=== PATIENT | female | born 1985 | race Caucasian/White ===

== ENCOUNTER 2020-07-24 23:36 | Emergency (ER) | payer MEDICAID, SELFPAY ==
[2020-07-24 23:40] VITALS: BP 140/100; PULSE 105; RESP 18; TEMP 36.7; O2SAT 100
--- NOTE | 2020-07-24 23:41 | ED.GENADUL_ITS ---
Discharge Plan Disposition Patient Disposition: HOME Condition: Good Discharge Details Clinical Impression: Subjective muscle weakness Primary Care Provider: Izabella Martin ED Provider: Carlito Tristan Home Meds and New Rx's Prescriptions: Continued methadone [Dolophine] 10 MG tablet 120 mg PO DAILY RF: 0 Discharge Instructions Additional Instructions: We will have care management help establish primary care for you. You may then follow-up with primary care for consideration of completion TIA work-up. However, as we discussed, likelihood of this being TIA is quite low. Return to ED for any new neurologic symptoms or concerns. Referrals: Care Management [Provider Group] Medical Decision Making Patient is extremely anxious. We talked about risk and likelihood of this being anything significant like TIA. Clearly not a peripheral nerve problem as symptoms resolved suddenly. Subjectively felt facial droop but did not actually look or see anyone that describe facial droop. Has a mild headache now but nothing severe. Did not develop headache until later in the day. No history of migraines. Doubt this is TIA given lack of other symptoms and given timing of less than 1 minute. Also doubt migraine related although could potentially be. I do not feel that EKG and laboratory studies are indicated. Will obtain noncontrast head CT. Patient does not have primary care. Will refer to care management to establish primary care. Then consider completion of TIA work-up outpatient with MRI, echo, Holter monitor. Again I think this is likely to be low yield given the patient's age and lack of risk factors for stroke other than smoking. CT scan completely normal. Patient very relieved. Discharge and have follow-up with PCP once care management able to help establish same. Return to ED for any new neurologic changes or concerns. HPI General Mode of arrival: ambulatory . Date/Time Provider Initiated Documentation: 07/24/20 23:40 . Limitations to Documentation: no limitations . Information obtained by: patient and RN notes reviewed . HPI Narrative: Patient presents to ED with complaint of facial drooping around noontime today. Patient reports waking up from a nap. Shortly after that she felt like the left side of her face just went completely limp and droopy. She did not look in the mirror or have anyone around to look at her face. Sensation went away in less than 1 minute. She had no associated symptoms. There was no vision change, numbness, weakness of the extremities, dizziness, headache. She did not speak so no ability to discern dysarthria or aphasia. However she did not feel confused. She has subsequently developed an extremely mild headache. She has a little bit of back discomfort. She is incredibly anxious and worried that it was a TIA which is what prompted her to finally come in after talking to various people. She denies chest pain, shortness of breath. She does smoke. She is not on control. She denies other medical problems. Related Data Home Medications Medication Instructions Recorded Confirmed methadone [Dolophine] 120 mg PO DAILY 07/27/13 07/24/20 Allergies Allergy/AdvReac Type Severity Reaction Status Date / Time promethazine HCl AdvReac Intermediate Agitation Unverified 07/24/20 23:50 [From Phenergan] Review of Systems Narrative: As documented in HPI otherwise negative as below. Const: no fever, chills, weakness Resp: no cough, SOB, pleuritic pain CV: no CP, diaphoresis, edema, syncope GI: no abdominal pain, nausea, vomiting, diarrhea Neuro: no numbness, confusion PFSH Medical History No significant past medical history Surgical History H/O ovarian cystectomy S/P ACL repair Social History Smoking/Tobacco Use Status: Current every day Smoking risk assessment performed?: Yes Drug use: Current Sobriety Do you feel safe at home: Yes Do you feel safe in your relationship?: Yes Exam Narrative Exam Narrative: Const: WDWN female in NAD. HEENT: NC/AT. Normal facial exam. Eyes: Normal conjunctiva and sclera. PERRL and EOMI. Neck: Supple. Trachea midline. Lungs: Normal respiratory effort. Lungs are clear. Cor: RRR without murmur/gallop. Good radial pulses. Neuro: A+O x 3. Normal speech, mentation, gait. Cranial nerves II - XII grossly intact. No gross motor or sensory deficit. FTN normal. Ext: No C/C/E. Skin: Warm and dry without rash.
--- NOTE | 2020-07-25 | DI.CT_ITS ---
EXAM: CT HEAD WO CLINICAL HISTORY: facial droop. TECHNIQUE: Imaging Protocol: Axial computed tomography images with coronal and sagittal reformatted images were created and reviewed COMPARISON: No exams were available for comparison FINDINGS: The ventricular system is normal in appearance. No evidence of acute intracranial hemorrhage, mass effect, or midline shift. The orbital structures are unremarkable. The temporal bone structures appear intact. Calvarium: Normal. Visualized Paranasal sinuses/Mastoids: Clear. IMPRESSION: Normal cranial CT. RADIATION DOSE DELIVERED: 660.58mGy.cm Total DLP 660.58mGy.cm Total DLP DATA REPOSITORY: All CT scans at this facility are submitted to the National Radiology Data Registry (NRDR) Dose Index Registry (DIR) with the [employer] (ACR). RADIATION OPTIMIZATION: All CT scans at this facility use at least one of these dose optimization te chniques: automated exposure control; mA and/or kV adjustment per patient size (includes targeted exa ms where dose is matched to clinical indication); or iterative reconstruction.
--- NOTE | 2020-07-25 00:31 | DI.VRAD_ITS ---
PROCEDURE INFORMATION: Exam: CT Head Without Contrast Exam date and time: 07/25/2020 12:15 AM Age: 34 years old Clinical indication: Other: Facial droop TECHNIQUE: Imaging protocol: Computed tomography of the head without contrast. Radiation optimization: All CT scans at this facility use at least one of these dose optimization techniques: automated exposure control; mA and/or kV adjustment per patient size (includes targeted exams where dose is matched to clinical indication); or iterative reconstruction. COMPARISON: No relevant images were readily available for comparison purposes. FINDINGS: Brain: No evidence of acute infarct, acute hemorrhage, or intracranial mass. Cerebral ventricles: No ventriculomegaly. Bones/joints: No acute skull fracture Paranasal sinuses: Clear Mastoid air cells: Clear Soft tissues: Unremarkable superficial soft tissues IMPRESSION: No acute intracranial process Dictated and Authenticated by: Thien Cruz MD. Ordering:FATIMAH Esteban MD
--- NOTE | 2020-07-25 00:35 | NUR.NOTE ---
referral made to CM for PCP establishment. Dian ED Nursing Note:
[2020-07-25 00:41] VITALS: BP 123/72; PULSE 72; RESP 18; TEMP 37; O2SAT 99
--- NOTE | 2020-07-26 07:25 | NUR.NOTE ---
Referral to Care Management to establish pcp to f/u for TIA.Nursing Note:
--- NOTE | 2020-07-27 09:43 | PDOC.ERCMPRO ---
- If Service Date Differs Date of service: 07/27/20 Time of Service: 09:43 Care Management Progress Note Rebecca is seen in the ED on 07/24/20 for muscle weakness. At the request of Dr. Tristan, ED provider, coordinates a referral to Dr. Sepideh Moore, on-call provider, of [facility], to assist Rebecca in obtaining a follow up appointment and in establishing care with a PCP. She has Medicaid for insurance.
== END 2020-07-25 00:44 | disposition home or self-care (01) ==
LOC: ER 07-25 00:46
PROVIDERS: Emergency Provider Emergency Medicine; PCP Physician Assistant
DX: M62.81 Muscle weakness (generalized) (principal); R51.9 Headache, unspecified; F41.9 Anxiety disorder, unspecified
CPT/HCPCS: 99284; 70450

== ENCOUNTER 2020-08-13 19:12 | Outpatient (REF) | payer MEDICAID, SELFPAY ==
[2020-08-13 19:11] LABS: Anion Gap 10.1 mmol/L (3-11); BUN 15 mg/dL (7-18); CO2 24.9 mmol/L (21.0-32.0); Calcium 8.8 mg/dL (8.5-10.1); Calculated LDL 63 mg/dL (<100); Chloride 106 mmol/L (98-107); Cholesterol 125 mg/dL (<200); Glucose 97 mg/dL (74-106); HDL Cholesterol 51 mg/dL (40-60); Potassium 4.1 mmol/L (3.5-5.1); Sodium 141 mmol/L (136-145); TSH 0.49 uIU/mL (0.36-3.74); Triglyceride 56 mg/dL (<150)
[2020-08-13 19:49] LABS: FREE T4 0.87 ng/dL (0.76-1.46)
[2020-08-15 10:23] LABS: Lyme Ab w Rflx to Lyme Confirm Negative (Negative)
== END 2020-08-13 19:32 ==
LOC: NCHCN 19:12
PROVIDERS: PCP Physician Assistant; Visit Provider Physician Assistant
DX: K59.00 Constipation, unspecified (principal); R29.810 Facial weakness; Z13.220 Encounter for screening for lipoid disorders
CPT/HCPCS: 80048; 80061; 84439; 84443; 86618

== ENCOUNTER 2021-01-17 01:54 | Outpatient (CLI) | payer MEDICAID, SELFPAY ==
--- NOTE | 2021-01-17 | DI.RAD_ITS ---
Exam(s) XR ABDOMEN FLAT UPRIGHT EXAM: XR ABDOMEN FLAT UPRIGHT CLINICAL HISTORY: CONSTIPATION, K59.00. TECHNIQUE: 2D digital imaging was performed. COMPARISON: No exams were available for comparison FINDINGS: Bowel gas pattern is nonspecific. No bowel obstruction or free air. Moderate amount of fecal materi al noted in the colon. Symmetrical metallic densities are projected over the upper aspect of the iliac crests. These are pr obably body piercings. IMPRESSION: Nonspecific bowel gas pattern. No prominent constipation avid DATA REPOSITORY: RADIATION DOSE DELIVERED:
== END 2021-01-17 02:14 ==
PROVIDERS: PCP Physician Assistant; Visit Provider Physician Assistant
DX: K59.00 Constipation, unspecified (principal)
CPT/HCPCS: 74019

== ENCOUNTER 2021-11-06 17:15 | Outpatient (REF) | payer MEDICAID, SELFPAY ==
[2021-11-06 20:59] LABS: Bilirubin Negative (Negative); Blood Negative (Negative); Clarity Clear (Clear); Glucose Negative (Negative); Ketones Trace mg/dL (Negative); Leukocyte Esterase Negative (Negative); Nitrite Positive (Negative); Specific Gravity >= 1.030 (1.005-1.025)
[2021-11-06 21:12] LABS: Epithelial Cells Many HPF (Negative); RBC Negative HPF (0-2)
[2021-11-06 21:13] LABS: Bacteria Packed HPF (Negative); C & S Indicated? C&S Done As Ordered; Crystals Many Calcium Oxalate HPF (Negative); Mucus Negative (Negative)
== END 2021-11-06 17:16 | disposition home or self-care (01) ==
LOC: LBN 17:15
PROVIDERS: PCP Physician Assistant; Visit Provider Family Medicine
DX: R30.0 Dysuria (principal)
CPT/HCPCS: 87077; 81003; 81015; 87086; 87186

== ENCOUNTER 2024-07-20 11:01 | Outpatient (REF) | payer MEDICAID, SELFPAY ==
--- OUTSIDE RECORDS SUMMARY | 2024-07-20 11:04 | XMS_ITS | Encounter Summary ---
Author Organization [facility] Address [address] [place] [address] Care Team Providers Care Middle School Professional Name Role Phone Unavailable Primary Care Provider Unavailabl e Encounter Details Date Type Department Care Team (Latest Contact Info) Description 06/04/1999 16:57 EDT - 06/30/1999 11:59 EST Hospital Encounter [facility] [address] [place] [address] Ryan Gupta III, ANP [address] [place] [address] Discharge Disposition: Auto Discharge Social History Tobacco Use Types Packs/Day Years Used Date Smoking Tobacco: Never Assessed Comments Unknown Sex and Gender Information Value Date Recorded Sex Assigned at Not on file Legal Sex Female 18:22 EST Gender Identity Not on file Sexual Orientation Not on file documented as of this encounter Discharge Disposition Disposition Code Departure Means Destination Auto Discharge documented in this encounter Plan of Treatment Not on file documented as of this encounter Visit Diagnoses Not on filedocumented in this encounter
--- OUTSIDE RECORDS SUMMARY | 2024-07-20 11:04 | XMS_ITS | Encounter Summary ---
Author Organization [facility] Address [address] [place] [address] Care Team Providers Care Safety Manager Name Role Phone Unavailable Primary Care Provider Unavailabl e Encounter Details Date Type Department Care Team (Late st Contact Info) Description 02/06/2003 Results Only [facility] [place] [facility] [address] [place] [address] James Sadler MD [address] [place] [address] [id number] Social History Tobacco Use Types Packs/Day Years Used Date Smoking Tobacco: Never Assessed Comments Unknown Sex and Gender Information Value Date Recorded Sex Assigned at Not on file Legal Sex Female 18:22 EST Gender Identity Not on file Sexual Orientation Not on file documented as of this encounter Plan of Treatment Not on file documented as of this encounter Procedures Procedure Name Priority Date/Time Associated Diagnosis Comments SURGICAL PATHOLOGY Routine 02/06/2003 0:00 EDT documented in this encounter Results * SURGICAL PATHOLOGY (02/06/2003 0:00 EDT) Pathology Report: SURGICAL PATHOLOGY REPORT Reports generated via electronic interface contain original data; however they are lacking the format of the original report. Caution should be taken when reading/interpreti ng unformatted reports. Name: ? TRAMAINE NEGRO ? Accession #: ? [id number] ? : ? 1985 (Age: 17) ??F ? Collect Date: ? 02/06/2003 ? Location: ? [facility] ? Receive Date: ? 02/06/2003 ? Provider: JAMES SADLER MD Copy to: [facility] TASHA CASEY MD ? Final Pathologic Diagnosis: A. ?Tonsil, left, tonsillectomy: 1. ?Reactive lymphoid follicular hyperplasia. B. ?Tonsil, right, tonsillectomy: 1. ?Reactive lymphoid follicular hyperplasia. Document reviewed and electronically signed by: Susanne Sacnlon MD Report ??Date: 02/09/2003 10:19 By the signature above, the attending physician certifies that he/she has personally conducted a gross and/or microscopic examination of the described specimens and rendered or confirmed the above diagnosis. Specimen(s) Received: A. ?Left tonsil (#1) B. ?Right tonsil (#2) Clinical History: ? Chronic tonsillitis, probable reflux esophagitis Gross Description: ? Received in formalin [facility] and left tonsil is a marlow-pink, ovoid, unoriented, 3.2 x 2.2 x 1.7 cm soft tissue surfaced by marlow, smooth to wrinkled mucosa. ??Upon sectioning, the cut surfaces are marlow-pink with a crypt-like architecture. ??No discrete nodule is identified. ??A service liaison representative section is submitted as (A). [facility] and right tonsil is a marlow-pink, ovoid, unoriented, 3.8 x 2.8 x 1.7 cm soft tissue surfaced by marlow, smooth to wrinkled mucosa. ??Upon sectioning, the cut surfaces are marlow-pink with a crypt-like architecture. ??No discrete nodule is identified. ??A service liaison representative section is submitted as (B). ??(Sil Ding)/zuhair End of Report [facility] 02/06/2003 02/06/2003 15: 27 EDT us James Sadler MD PATHOLOGY ORDERABLES Final Resul t [facility] [address] [place] [address] documented in this encounter Visit Diagnoses Not on filedocumented in this encounter
--- OUTSIDE RECORDS SUMMARY | 2024-07-20 11:04 | XMS_ITS | Clinical Summary ---
Author Organization [facility] Address [address] [place] [address] Care Team Providers Care Fishing Lure Assembler Name Role Phone Ruth Ann Montalvo Primary Care Provider [phone] Social History Tobacco Use Types Packs/Day Years Used Date Smoking Tobacco: Never Assessed Comments Unknown Sex and Gender Information Value Date Recorded Sex Assigned at Not on file Legal Sex Female 18:22 EST Gender Identity Not on file Sexual Orientation Not on file Plan of Treatment Health Maintenance Due Date Last Done Comments Hepatitis C Screen 1985 Hepatitis B Vaccine (1 of 3 - 19+ 3-dose series) 12/02 COVID-19 Vaccine ( season) 2024 Care Teams Fishing Lure Assembler Relationship Specialty Start Date End Date Ruth Ann Montalvo FNP PCP - General 07/17/15
--- OUTSIDE RECORDS SUMMARY | 2024-07-20 11:04 | XMS_ITS | Encounter Summary ---
Author Organization [facility] Address [address] [place] [address] Care Team Providers Care Pattern Carrier Name Role Phone Unavailable Primary Care Provider Unavailabl e Encounter Details Date Type Department Care Team (Latest Contact Info) Description 05/27/1999 10:47 EDT - 05/27/1999 11:59 EDT Hospital Encounter [address] [address] Ryan Gupta III, ANP [address] [place] [address] Discharge Disposition: Auto Discharge Social [...]
--- OUTSIDE RECORDS SUMMARY | 2024-07-20 11:04 | XMS_ITS | Encounter Summary ---
Author Organization [facility] Address [address] [place] [address] Care Team Providers Care Metal Alloy Scientist Name Role Phone Unavailable Primary Care Provider Unavailabl e Encounter Details Date Type Department Care Team (Latest Contact Info) Description 05/03/1999 8:59 EDT - 05/03/1999 11:59 EDT Hospital Encounter [facility] [place] [facility] [address] [place] [address] Ryan Gupta III, ANP [address] [place] [address] Discharge Disposition: Auto Discharge Social [...] Procedure Name Priority Date/Time Associated Diagnosis Comments KNEE 3 VIEWS Routine 05/03/1999 13:55 EDT KNEE 1 OR 2 VIEWS Routine 05/03/1999 13: 55 EDT documented in this encounter Results * KNEE 1 OR 2 VIEWS (05/03/1999 13:55 EDT) Anatomical Region Laterality Modality Other 05/03/1999 13:5 5 EDT Narrative 07/10/2009 8:37 EST R/O FRACTURE S/P FALL WITH INJURY DOI:05/01/99 BILATERAL KNEES: 05/03/99 RIGHT KNEE: There is mild medial joint space narrowing. No other abnormalities are seen. LEFT KNEE: There is very minimal medial joint space narrowing. The patellofemoral joint space is unremarkable. No other abnormalities are seen. ; / Procedure Note Katina Tamez MD - 07/10/2009 R/O FRACTURE S/P FALL WITH INJURY DOI:05/01/99 BILATERAL KNEES: 05/03/99 RIGHT KNEE: There is mild medial joint space narrowing. No other abnormalities are seen. LEFT KNEE: There is very minimal medial joint space narrowing. The patellofemoral joint space is unremarkable. No other abnormalities are seen. ; / Ryan Gupta III, ANP [facility] O RDERABLES Final Result * KNEE 3 VIEWS (05/03/1999 13:55 EDT) Anatomical Region Laterality Modality Other 05/03/1999 13:5 5 EDT Narrative 07/10/2009 8:37 EST R/O FRACTURE S/P FALL WITH INJURY DOI:05/01/99 Procedure Note Katina Tamez MD - 07/10/2009 R/O FRACTURE S/P FALL WITH INJURY DOI:05/01/99 Ryan Gupta III, ANP IMG DIAGNOSTIC IMAGING O RDERABLES Final Result documented in this encounter Visit Diagnoses Not on filedocumented in this encounter
--- OUTSIDE RECORDS SUMMARY | 2024-07-20 11:04 | XMS_ITS | Encounter Summary ---
Author Organization [facility] Address [address] [place] [address] Care Team Providers Care College Archivist Name Role Phone Unavailable Primary Care Provider Unavailabl e Encounter Details Date Type Department Care Team (Late st Contact Info) Description 05/09/2005 Results Only [facility] [place] [facility] [address] [place] [address] Unknown, Provider, Social History Tobacco Use Types Packs/Day Years [...] Procedure Name Priority Date/Time Associated Diagnosis Comments N. GONORRHOEAE AMPLIFIED PROBE Routine 05/09/2005 21:58 EDT ZZCHLAMYDIA TRACHOMATIS AMPLIFIED PROBE Routine 05/09/2005 21:58 EDT documented in this encounter Results * N. GONORRHOEAE AMPLIFIED PROBE (05/09/2005 21:58 EDT) Result No Neisseria gonorrhoeae DNA detected by diesel powerplant mechanic mediated amplification. [facility] Report Status Final [id number] [facility] Specimen Description Cervix [facility] 05/09/2005 21:5 8 EDT 05/11/2005 14:10 EDT us Provider Unknown MICROBIOLOGY - GENERAL ORDER TIFF Final Result [facility] [address] [place] [address] * CHLAMYDIA TRACHOMATIS AMPLIFIED PROBE (05/09/2005 21:58 EDT) Specimen Description Cervix [facility] Result No Chlamydia trachomatis DNA detected by diesel powerplant mechanic mediated amplification. [facility] Report Status Final [id number] [facility] 05/09/2005 21:5 8 EDT 05/11/2005 14:10 EDT us Provider Unknown MICROBIOLOGY - GENERAL ORDER TIFF Final Result [facility] [address] [place] [address] documented in this encounter Visit Diagnoses Not on filedocumented in this encounter
--- OUTSIDE RECORDS SUMMARY | 2024-07-20 11:04 | XMS_ITS | Encounter Summary ---
Author Organization [facility] Address [address] [place] [address] Care Team Providers Care Engine Repairer Service Name Role Phone Unavailable Primary Care Provider Unavailabl e Encounter Details Date Type Department Care Team (Latest Contact Info) Description 12/28/2001 19:39 EDT Hospital Encounter [address] [address] Pratibha Philippe MD [address] [place] [id number] Discharge Disposition: Auto Discharge Social History Tobacco [...] Procedure Name Priority Date/Time Associated Diagnosis Comments N.GONORRHOEAE PROBE Routine 12/28/2001 2 1:45 EDT CHLAMYDIA TRACHOMATIS PROBE Routine 12/28/2001 21:45 EDT TEST, URINE Routine 12/28/2001 20:50 EDT documented in this encounter Results * N.GONORRHOEAE PROBE (12/28/2001 21:45 EDT) Specimen Description Cervix [facility] Result No Neisseria gonorrhoeae DNA detected by motors assembler mediated amplification. [facility] Report Status Final [id number] [facility] 12/28/2001 21:4 5 EDT 12/29/2001 10:55 EDT us Pratibha Philippe MD HISTORICAL LAB FOR SQ LOAD Final Result Performing Organization Address [facility] de Phone Number [facility] [address] [place] [address] * CHLAMYDIA TRACHOMATIS PROBE (12/28/2001 21:45 EDT) Specimen Description Cervix [facility] Result No Chlamydia trachomatis DNA detected by motors assembler mediated amplification. [facility] Report Status Final [id number] [facility] 12/28/2001 21:4 5 EDT 12/29/2001 10:55 EDT us Pratibha Philippe MD HISTORICAL LAB FOR SQ LOAD Final Result Performing Organization Address [facility] de Phone Number [facility] [address] [place] [address] * TEST, URINE (12/28/2001 20:50 EDT) Result-Pregnanc y Test, Ur Neg [facility] Specific [place] 1.023 [facility] 12/28/2001 20:5 0 EDT 12/28/2001 20:54 EDT us Pratibha Philippe MD URINALYSIS ORDERABLES Final Result Performing Organization Address [facility] de Phone Number [facility] [address] [place] [address] documented in this encounter Visit Diagnoses Not on filedocumented in this encounter
--- OUTSIDE RECORDS SUMMARY | 2024-07-20 11:04 | XMS_ITS | Referral Summary ---
Author Organization [facility] Address [address] [place] [address] Care Team Providers Care Scanner Operator Name Role Phone Ruth Ann Montalvo Primary Care Provider [phone] Social History Tobacco Use Types Packs/Day Years Used Date Smoking Tobacco: Never Assessed Comments Unknown Sex and Gender Information Value Date Recorded Sex Assigned at Not on file Legal Sex Female 18:22 EST Gender Identity Not on file Sexual Orientation Not on file Plan of Treatment Not on file Care Teams Scanner Operator Relationship Specialty Start Date End Date Ruth Ann Montalvo FNP PCP - General 07/17/15
--- OUTSIDE RECORDS SUMMARY | 2024-07-20 11:04 | XMS_ITS | Encounter Summary ---
Author Organization [facility] Address [address] [place] [address] Care Team Providers Care Director Check Name Role Phone Ruth Ann Montalvo STILL CLEANER TUBE Primary Care Provider [phone] Encounter Details Date Type Department Care Team (Late st Contact Info) Description 08/14/2020 Lab Requisition [facility] Pathology & Laboratory Medicine - [facility] [address] [place] [address] Outr Resulting Lab, Provider Social History Tobacco Use Types Packs/Day Years [...] Procedure Name Priority Date/Time Associated Diagnosis Comments LYME AB Routine 08/13/2020 15:55 EST documented in this encounter Results * LYME AB (08/13/2020 15:55 EST) Lyme Ab Negative Negative 08/15/2020 10:17 EST [facility] Comment:New 3rd generation a ssay in use 02/08/2020 Blood VENOUS BLOOD / Unknown 08/13/2020 15:55 EST 08/14/2020 16:14 EST us Provider Outr Resulting Lab IMMUNOLOGY AND SEROL OGY ORDERABLES Final Result [facility] [address] [place] [id number] documented in this encounter Visit Diagnoses Not on filedocumented in this encounter Care Teams Director Check Relationship Specialty Start Date End Date Ruth Ann Montalvo FNP PCP - General 07/17/15 documented as of this encounter
--- OUTSIDE RECORDS SUMMARY | 2024-07-20 11:04 | XMS_ITS | Encounter Summary ---
Author Organization [facility] Address [address] [place] [address] Care Team Providers Care Storage Manager Name Role Phone Unavailable Primary Care Provider Unavailabl e Encounter Details Date Type Department Care Team (Latest Contact Info) Description 08/02/1999 16:39 EST - 08/30/1999 11:59 EST Hospital Encounter [facility] [place] [facility] [address] [place] [address] Ryan Gupta III, ANP [address] [place] [address] Discharge Disposition: Auto Discharge Social [...]
--- OUTSIDE RECORDS SUMMARY | 2024-07-20 11:04 | XMS_ITS | Encounter Summary ---
Author Organization [facility] Address [address] [place] [address] Care Team Providers Care Quahogger Name Role Phone Unavailable Primary Care Provider Unavailabl e Encounter Details Date Type Department Care Team (Late st Contact Info) Description 02/05/2004 Results Only [facility] [place] conversion [address] [place] [address] Unknown, Provider, Social History Tobacco Use Types [...] Procedure Name Priority Date/Time Associated Diagnosis Comments ZZCHLAMYDIA TRACHOMATIS AMPLIFIED PROBE Routine 02/05/2004 18:37 EDT N. GONORRHOEAE AMPLIFIED PROBE Routine 02/05/2004 18:36 EDT documented in this encounter Results * CHLAMYDIA TRACHOMATIS AMPLIFIED PROBE (02/05/2004 18:37 EDT) Specimen Description [facility] Result No Chlamydia trachomatis DNA detected by life skills specialist mediated amplification. [facility] Report Status Final [id number] [facility] 02/05/2004 18:3 7 EDT 02/06/2004 21:06 EDT us Provider Unknown MICROBIOLOGY - GENERAL ORDER TIFF Final Result [facility] [address] [place] [address] * N. GONORRHOEAE AMPLIFIED PROBE (02/05/2004 18:36 EDT) Result No Neisseria gonorrhoeae DNA detected by life skills specialist mediated amplification. [facility] Report Status Final [id number] [facility] Specimen Description [facility] 02/05/2004 18:3 6 EDT 02/06/2004 21:06 EDT us Provider Unknown MICROBIOLOGY - GENERAL ORDER TIFF Final Result [facility] [address] [place] [address] documented in this encounter Visit Diagnoses Not on filedocumented in this encounter
[2024-07-20 18:47] LABS: HCT 47.3 % (36.0-46.0); HGB 15.1 g/dL (11.2-15.7); MCH 30.2 pg (27.0-33.0); MCHC 31.9 % (32.0-36.0); MCV 95 fL (80-95); MPV 9.4 fL (8.0-11.0); Platelet Count 396 10^3/uL (130-400); RDW 12.9 % (11.7-14.6); RDW-SD 45.2 fL; WBC 9.56 10^3/uL (4.4-10.8)
[2024-07-20 19:00] LABS: Anion Gap 10.8 mmol/L (3-11); BUN 15 mg/dL (7-18); CO2 28.2 mmol/L (21.0-32.0); CREATININE 1.2 mg/dL (0.55-1.02); Calcium 9.6 mg/dL (8.5-10.1); Calculated LDL 77 mg/dL (<100); Chloride 103 mmol/L (98-107); Cholesterol 150 mg/dL (<200); Estimated GFR 58.69 (mL/min/1.73m2); Glucose 121 mg/dL (74-106); HDL Cholesterol 62 mg/dL (40-60); Potassium 3.7 mmol/L (3.5-5.1); Sodium 142 mmol/L (136-145); Triglyceride 58 mg/dL (<150)
== END 2024-07-20 11:02 | disposition home or self-care (01) ==
LOC: NCHCN 11:01
PROVIDERS: PCP Physician Assistant; Visit Provider Physician Assistant
DX: Z13.220 Encounter for screening for lipoid disorders (principal); K59.00 Constipation, unspecified
CPT/HCPCS: 80048; 80061; 85027

== ENCOUNTER 2024-11-03 13:59 | Outpatient (REF) | payer MEDICAID, SELFPAY ==
[2024-11-03 20:13] LABS: Anion Gap 6.1 mmol/L (3-11); BUN 12 mg/dL (7-18); CO2 30.9 mmol/L (21.0-32.0); CREATININE 1.1 mg/dL (0.55-1.02); Calcium 9.6 mg/dL (8.5-10.1); Chloride 104 mmol/L (98-107); Estimated GFR 65.14 (mL/min/1.73m2); Glucose 115 mg/dL (74-106); Potassium 4.3 mmol/L (3.5-5.1); Sodium 141 mmol/L (136-145)
== END 2024-11-03 14:00 | disposition home or self-care (01) ==
LOC: NCHCN 13:59
PROVIDERS: PCP Physician Assistant; Visit Provider Physician Assistant
DX: R94.4 Abnormal results of kidney function studies (principal)
CPT/HCPCS: 80048